=== PATIENT | male | born 1955 | race Caucasian/White ===

== ENCOUNTER → 2017-03-20 | Outpatient (CLI) | payer OTHER ==
[~2017-03-20] MED LIST: ASPIR-LOW81 MG PO; PERCOCET 5/31 TABLET PO
[2017-03-20 10:17] LABS: HEMATOCRIT 44.4 % (38.0-50.0); MCH 29.8 PG (29.0-34.0); MCHC 33.8 G/DL (30.0-36.0); MCV 88.1 FL (86-99); MEAN PLAT.VOLUME 10.7 uM^3 (9.0-12.4); PLATELET COUNT 101 K/uL (156-360); RBC DIS.WIDTH-CV 13.3 % (11.8-14.6); RBC DIS.WIDTH-SD 43.1 % (39-53); RED BLOOD COUNT 5.04 M/uL (4.00-5.50)
[2017-03-20 10:32] LABS: INTER. NORMALIZED RATIO 1.1; PROTHROMBIN TIME 10.7 (9.2-11.2); PTT 28.2 (25-32)
== END | disposition home or self-care (01) ==
LOC: OPR 09:36 → EDSTATUS 10:00
PROVIDERS: Surgery
PROC: 0WJFXZZ Inspection of Abdominal Wall, External Approach (ICD-10-PCS; principal; 2017-03-20)
DX: M96.842 Postprocedural seroma of a musculoskeletal structure following a musculoskeletal system procedure (principal); Z53.09 Procedure and treatment not carried out because of other contraindication
CPT/HCPCS: 74150; 85027; 85610; 85730; J3010

== ENCOUNTER 2017-04-28 06:41 | Day surgery (SDC) | payer OTHER ==
[~2017-04-28] VITALS: Ht 185.4 cm; Wt 120.2 kg
[2017-04-28 07:31] VITALS: BP 140/89
[2017-04-28 08:20] LABS: METH RESISTANT S AUREUS PCR POSITIVE (NEGATIVE)
[2017-04-28 08:32] LABS: PROBE CHECK PASS
[2017-04-28] MEDS ORDERED: PERCOCET 5/31 TABLET PO (10:47)
[2017-04-28 12:00] VITALS: BP 182/94
[2017-04-28 13:10] VITALS: BP 134/78
== END 2017-04-28 14:44 | disposition home or self-care (01) ==
LOC: SDC 06:41
PROVIDERS: Surgery
PROC: 0WUF4JZ Supplement Abdominal Wall with Synthetic Substitute, Percutaneous Endoscopic Approach (ICD-10-PCS; principal; 2017-04-28)
DX: K43.2 Incisional hernia without obstruction or gangrene (principal); I10 Essential (primary) hypertension; I83.11 Varicose veins of right lower extremity with inflammation; E66.01 Morbid (severe) obesity due to excess calories; Z68.36 Body mass index [BMI] 36.0-36.9, adult; K75.81 Nonalcoholic steatohepatitis (NASH); Z86.718 Personal history of other venous thrombosis and embolism; Z86.73 Personal history of transient ischemic attack (TIA), and cerebral infarction without residual deficits; Z79.82 Long term (current) use of aspirin; Z82.49 Family history of ischemic heart disease and other diseases of the circulatory system; Z80.1 Family history of malignant neoplasm of trachea, bronchus and lung
CPT/HCPCS: 87641; C1781; J0330; J0690; J1100; J1170; J1885; J2250; J2405; J2710; J3010